=== PATIENT | male | born 1980 | race Caucasian/White ===

== ENCOUNTER 2018-01-05 19:48 | Emergency (ER) | payer MEDICARE, OTHER ==
[2018-01-05 19:55] VITALS: BP 132/91; PULSE 85; RESP 18; TEMP 98.1
--- NOTE | 2018-01-05 20:15 | ED ---
General Adult HPI - General Chief complaint: Skin/Abscess/Foreign Body Stated complaint: Tattoo is infected Time Seen by Provider: 01/05/18 19:56 Source: patient Mode of arrival: ambulatory Limitations: no limitations - History of Present Illness Initial comments: 7-year-old male presents to the ED for skin infection over a tattoo on his left forearm. He states he had a tattoo done outside of a tattoo shop at a friend's house 7 days ago. He says sterile technique was used somewhat. He first started noticing papules over the tattoo on the forearm 4 days ago. He states since then some areas of his skin under the tattoo have started to open and have become intensely pruritic. He states he has been washing it with soap and water and brought a special wash for tattoos that included sterile water this morning and has used it since that time. He states the area has been draining from time to time but he has been washing it frequently. There is currently no drainage or abscesses visible on the tattoo. He denies any fever or chills nausea vomiting shortness of breath. He states he has had tattoos done at the same place before with no problem. Also had a tattoo on his back touched up at the same time but does not notice symptoms on his back. States he has no pain with flexing and extending his hand. - Related Data Previous Rx's Medication Instructions Recorded Sulfamethox-Tmp 800-160Mg [Bactrim 1 tab PO Q12HR #14 tab 01/05/18 DS 800-160 mg] Allergies Allergy/AdvReac Type Severity Reaction Status Date / Time naproxen AdvReac Diarrhea Verified 01/05/18 19:55 Review of Systems ROS Statement: Those systems with pertinent positive or pertinent negative responses have been documented in the HPI. ROS Other: All systems not noted in ROS Statement are negative. Past Medical History Past Medical History: No Reported History History of Any Multi-Drug Resistant Organisms: None Reported Past Surgical History: Orthopedic Surgery Additional Past Surgical History / Comment(s): left wrist; left knee Past Psychological History: Depression Smoking Status: Current every day smoker Past Alcohol Use History: Occasional Past Drug Use History: Marijuana General Exam Limitations: no limitations General appearance: alert, in no apparent distress Head exam: Present: atraumatic, normocephalic, normal inspection Eye exam: Present: normal appearance, PERRL, EOMI. Absent: scleral icterus, conjunctival injection, periorbital swelling Respiratory exam: Present: normal lung sounds bilaterally. Absent: respiratory distress, wheezes, rales, rhonchi, stridor Cardiovascular Exam: Present: regular rate, normal rhythm, normal heart sounds. Absent: systolic murmur, diastolic murmur, rubs, gallop, clicks Extremities exam: Present: full ROM, normal capillary refill, other (Large tattoo covering left forearm. Erythematous papules noted along tattoo as well as open areas of skin. No drainage noted at this time. Findings are not extending beyond tattoo. No red streaking noted. Full range of motion of wrist and elbow. No pain with movement of extremity. Strong radial pulse in left wrist.). Absent: tenderness, pedal edema, joint swelling Back exam: Present: normal inspection (Tattoo noted on the mid upper back. No abnormal findings present.). Absent: tenderness, muscle spasm, paraspinal tenderness, vertebral tenderness, rash noted Course Vital Signs 01/05/18 19:49 Temperature 98.1 F Pulse Rate 85 Respiratory 18 Rate Blood Pressure 132/91 O2 Sat by Pulse 98 Oximetry Medical Decision Making - Medical Decision Making 87-year-old male presents to emergency department for infected tattoo on left forearm. States he had this tattoo done at a friend's house one week ago and noticed pruritic erythematous papules about 4 days ago. Since then he has noticed some opening of the skin and drainage. He has been washing the area with sterile water. No pain with movement of the extremities, no streaking up the arm, and papules are not extending beyond the tattoo site. Patient will be given oral antibiotics with return precautions including worsening infection an advancing redness up arm. Disposition Clinical Impression: Cellulitis of forearm, left Disposition: HOME SELF-CARE Condition: Good Instructions: Cellulitis (ED) Additional Instructions: Return to Emergency Department if symptoms worsen or do not improve. If you notice streaking redness up the arm or spreading infection, please return or contact primary care physician. Prescriptions: Sulfamethox-Tmp 800-160Mg [Bactrim DS 800-160 mg] 1 tab PO Q12HR #14 tab Referrals: None,Stated [Primary Care Provider] - 1-2 days Time of Disposition: 20:19
== END 2018-01-05 20:38 | disposition home or self-care (01) ==
LOC: EC 19:48
DX: L03.114 Cellulitis of left upper limb (principal); F17.200 Nicotine dependence, unspecified, uncomplicated; Z88.6 Allergy status to analgesic agent
CPT/HCPCS: 99282

== ENCOUNTER 2019-06-21 10:31 | Emergency (ER) | payer OTHER ==
[2019-06-21 10:35] VITALS: RESP 18
--- NOTE | 2019-06-21 10:52 | ED ---
General Adult HPI - General Chief complaint: Arrhythmia/Palpitations Stated complaint: abn EKG Time Seen by Provider: 06/21/19 10:36 Source: patient Mode of arrival: ambulatory Limitations: no limitations - History of Present Illness Initial comments: Dictation was produced using [employer] dictation software. please excuse any grammatical, word or spelling errors. Chief Complaint: 38-year-old male with strong family history of coronary artery disease presents with palpitations and abnormal EKG from urgent care. History of Present Illness: he is a 38-year-old male he has strong family history of coronary artery disease. He presents since today to us from [facility]. He was seen at the [facility] for restorative care for chief complaint of palpitations. He states he woke up from his sleep at approximately 4 AM or concerns palpitations. He called his primary care doctor whose office is rather far away. He was instructed to go to the urgent care for medical evaluation. Urgent care was concerned that his EKG was abnormal. He was sent here for concerns of acute coronary syndrome. Patient denied any chest pain to the practitioner at the urgent care. To me he said he had one episode of sharp chest pain that lasts for several seconds while he was at urgent care today. Discussed patient case with urgent care staff states that patient had abnormalities seen on his EKG. Patient is asymptomatic at this time. He reports that his father had a heart attack at around the same age as the patient is currently. The ROS documented in this emergency department record has been reviewed and confirmed by me. Those systems with pertinent positive or negative responses have been documented in the HPI. All other systems are other negative and/or noncontributory. PHYSICAL EXAM: General Impression: Alert and oriented x3, not in acute distress HEENT: Normocephalic atraumatic, extra-ocular movements intact, pupils equal and reactive to light bilaterally, mucous membranes moist. Cardiovascular: Heart regular rate and rhythm, S1&S2 audible, no murmurs, rubs or gallops Chest: Lungs clear to auscultation bilaterally, no rhonchi, no wheeze, no rales Abdomen: Bowel sounds present, abdomen soft, non-tender, non-distended, no o rganomegaly Musculoskeletal: Pulses present and equal in all extremities, no peripheral edema Motor: no focal deficits noted Neurological: CN II-XII grossly intact, no focal motor or sensory deficits noted Skin: Intact with no visualized rashes Psych: Normal affect and mood ED course: 38-year-old male with no significant past medical history presents with chief complaint of palpitations and abnormal EKG via [facility]. Vital signs upon arrival are within acceptable limits. EKG from urgent care was reviewed showing nonspecific changes. There is a T-wave inversion in lead 3. No other signs of ischemia noted. EKG shows the same.Should observe the emergency department for several hours with no changes in medical status. 2 sets troponins negative. At this point there is no clear etiology for patient's palpitations. Discussed with patient that just because his workup is negative U doesn't mean that there is any underlying disease. He is told to follow-up with cardiology. Dr. Rangel was discussed. Patient given aspirin. Be discharged. EKG interpretation: Ventricular rate 87, normal sinus rhythm, MD interval 150, QTc 2, QTc 413. No MD prolongation, no QTC prolongation. No old EKG for comparison. There is nonspecific changes with T-wave inversion in lead 3. Rest appears to be some benign early repolarization. EKG today is nonspecific. - Related Data Home Medications Medication Instructions Recorded Confirmed Cholecalciferol (Vitamin D3) 2,000 unit PO DAILY 06/21/19 06/21/19 [Vitamin D3] DULoxetine HCL [Cymbalta] 60 mg PO DAILY 06/21/19 06/21/19 Gabapentin [Neurontin] 300 mg PO DAILY 06/21/19 06/21/19 Gabapentin [Neurontin] 600 mg PO HS 06/21/19 06/21/19 Omeprazole 40 mg PO BID 06/21/19 06/21/19 Allergies Allergy/AdvReac Type Severity Reaction Status Date / Time naproxen AdvReac Diarrhea Verified 06/21/19 11:00 Review of Systems ROS Statement: Those systems with pertinent positive or pertinent negative responses have been documented in the HPI. ROS Other: All systems not noted in ROS Statement are negative. Past Medical History Past Medical History: No Reported History History of Any Multi-Drug Resistant Organisms: None Reported Past Surgical History: Orthopedic Surgery Additional Past Surgical History / Comment(s): left wrist; left knee Past Psychological History: Depression Smoking Status: Current every day smoker Past Alcohol Use History: Occasional Past Drug Use History: Marijuana General Exam Limitations: no limitations Course Vital Signs 06/21/19 06/21/1919 10:33 11:00 11:31 Temperature 98.5 F Pulse Rate 96 77 73 Respiratory 18 18 18 Rate Blood Pressure 151/99 149/106 145/104 O2 Sat by Pulse 99 98 96 Oximetry 06/21/19 06/21/19 06/21/19 12:00 12:30 13:00 Temperature Pulse Rate 69 88 72 Respiratory 18 17 18 Rate Blood Pressure 140/100 133/96 134/103 O2 Sat by Pulse 99 96 97 Oximetry 06/21/19 06/21/19 13:30 14:00 Temperature Pulse Rate 73 68 Respiratory 18 18 Rate Blood Pressure 135/97 141/95 O2 Sat by Pulse 98 96 Oximetry Medical Decision Making - Lab Data Result diagrams: 06/21/19 10:55 06/21/19 10:55 Lab Results 06/21/19 06/21/19 06/21/19 Range/Units 10:55 10:55 10:55 WBC 6.7 (3.8-10.6) k/uL RBC 4.88 (4.30-5.90) m/uL Hgb 16.5 (13.0-17.5) gm/dL Hct 46.1 (39.0-53.0) % MCV 94.5 (80.0-100.0) fL MCH 33.9 (25.0-35.0) pg MCHC 35.8 (31.0-37.0) g/dL RDW 13.5 (11.5-15.5) % Plt Count 205 (150-450) k/uL Neutrophils % 58 % Lymphocytes % 29 % Monocytes % 8 % Eosinophils % 2 % Basophils % 1 % Neutrophils # 3.9 (1.3-7.7) k/uL Lymphocytes # 1.9 (1.0-4.8) k/uL Monocytes # 0.5 (0-1.0) k/uL Eosinophils # 0.1 (0-0.7) k/uL Basophils # 0.1 (0-0.2) k/uL Sodium 143 (137-145) mmol/L Potassium 4.0 (3.5-5.1) mmol/L Chloride 106 (98-107) mmol/L Carbon Dioxide 27 (22-30) mmol/L Anion Gap 10 mmol/L BUN 7 L (9-20) mg/dL Creatinine 0.86 (0.66-1.25) mg/dL Est GFR (CKD-EPI)AfAm >90 (>60 ml/min/1.73 sqM) Est GFR (CKD-EPI)NonAf >90 (>60 ml/min/1.73 sqM) Glucose 94 (74-99) mg/dL Calcium 9.6 (8.4-10.2) mg/dL Magnesium 2.1 (1.6-2.3) mg/dL Troponin I <0.012 (0.000-0.034) ng/mL 06/21/19 Range/Units 14:05 WBC (3.8-10.6) k/uL RBC (4.30-5.90) m/uL Hgb (13.0-17.5) gm/dL Hct (39.0-53.0) % MCV (80.0-100.0) fL MCH (25.0-35.0) pg MCHC (31.0-37.0) g/dL RDW (11.5-15.5) % Plt Count (150-450) k/uL Neutrophils % % Lymphocytes % % Monocytes % % Eosinophils % % Basophils % % Neutrophils # (1.3-7.7) k/uL Lymphocytes # (1.0-4.8) k/uL Monocytes # (0-1.0) k/uL Eosinophils # (0-0.7) k/uL Basophils # (0-0.2) k/uL Sodium (137-145) mmol/L Potassium (3.5-5.1) mmol/L Chloride (98-107) mmol/L Carbon Dioxide (22-30) mmol/L Anion Gap mmol/L BUN (9-20) mg/dL Creatinine (0.66-1.25) mg/dL Est GFR (CKD-EPI)AfAm (>60 ml/min/1.73 sqM) Est GFR (CKD-EPI)NonAf (>60 ml/min/1.73 sqM) Glucose (74-99) mg/dL Calcium (8.4-10.2) mg/dL Magnesium (1.6-2.3) mg/dL Troponin I <0.012 (0.000-0.034) ng/mL Disposition Clinical Impression: Palpitations Disposition: HOME SELF-CARE Condition: Good Instructions (If sedation given, give patient instructions): Heart Palpitations (ED) Is patient prescribed a controlled substance at d/c from ED?: No Referrals: Eriberto Evans MD [STAFF PHYSICIAN] - 1-2 days Time of Disposition: 14:57
[2019-06-21 11:17] LABS: Basophils # (A) 0.1 k/uL (0-0.2); Basophils % (A) 1 %; Eosinophils # (A) 0.1 k/uL (0-0.7); Eosinophils % (A) 2 %; HCT 46.1 % (39.0-53.0); HGB 16.5 gm/dL (13.0-17.5); Lymphocytes # (A) 1.9 k/uL (1.0-4.8); Lymphocytes % (A) 29 %; MCH 33.9 pg (25.0-35.0); MCHC 35.8 g/dL (31.0-37.0); MCV 94.5 fL (80.0-100.0); Mean Platelet Volume 7.4; Monocytes # (A) 0.5 k/uL (0-1.0); Monocytes % (A) 8 %; Neutrophils # (A) 3.9 k/uL (1.3-7.7); Neutrophils % (A) 58 %; Platelet Count 205 k/uL (150-450); RBC 4.88 m/uL (4.30-5.90); RDW 13.5 % (11.5-15.5); WBC 6.7 k/uL (3.8-10.6)
--- NOTE | 2019-06-21 11:26 | XR ---
EXAMINATION TYPE: XR chest 2V DATE OF EXAM: 06/21/2019 COMPARISON: NONE TECHNIQUE: PA and lateral views submitted. HISTORY: Heart palpitations, pain abnormal EKG FINDINGS: The lungs are clear and there is no pneumothorax, pleural effusion, or focal pneumonia. Biapical pl eural thickening. No overt failure. IMPRESSION: 1. No acute process.
[2019-06-21 11:28] LABS: African American GFR (CKD) >90 (>60 ml/min/1.73 sqM); Anion Gap 10 mmol/L; Blood Urea Nitrogen 7 mg/dL (9-20); Calcium 9.6 mg/dL (8.4-10.2); Carbon Dioxide 27 mmol/L (22-30); Chloride 106 mmol/L (98-107); Glucose 94 mg/dL (74-99); Magnesium 2.1 mg/dL (1.6-2.3); Sodium 143 mmol/L (137-145)
[2019-06-21 15:08] VITALS: BP 133/88; PULSE 64; TEMP 98
== END 2019-06-21 15:10 | disposition home or self-care (01) ==
LOC: EC 10:31
DX: R00.2 Palpitations (principal); F32.9 Major depressive disorder, single episode, unspecified; F17.200 Nicotine dependence, unspecified, uncomplicated; Z82.49 Family history of ischemic heart disease and other diseases of the circulatory system; Z79.899 Other long term (current) drug therapy; Z88.6 Allergy status to analgesic agent
CPT/HCPCS: 36415; 71046; 80048; 83735; 84484; 85025; 93005; 99285

== ENCOUNTER → 2019-07-18 | Outpatient (CLI) | payer OTHER ==
[2019-07-18 16:59] LABS: Chol/HDL Ratio 5.68
== END | disposition home or self-care (01) ==
LOC: LABWHC1 09:24
PROVIDERS: ATTEND Internal Medicine Clinical Cardiac Electrophysiology
DX: R00.2 Palpitations (principal); E78.5 Hyperlipidemia, unspecified
CPT/HCPCS: 36415; 80061; 84443

== ENCOUNTER 2019-09-19 23:27 | Emergency (ER) | payer OTHER ==
[2019-09-19 23:41] VITALS: RESP 18
[2019-09-20] MEDS ORDERED: SULFAMETHOX-TMP 800-160MG 1 EACH TAB PO STA (00:44)
[2019-09-20] MEDS ORDERED: SULFAMETH-TMP DS STARTER PACK 2 TAB BTL PO STA (00:44)
[2019-09-20] MEDS ORDERED: cefTRIAXone 1,000 MG VIAL (IM USE) IM STA (00:44)
--- NOTE | 2019-09-20 01:21 | ED ---
General Adult HPI - General Chief complaint: Skin/Abscess/Foreign Body Stated complaint: Abscess on rt arm, arm pain Time Seen by Provider: 09/20/19 00:31 Source: patient, RN notes reviewed, old records reviewed Mode of arrival: ambulatory Limitations: no limitations - History of Present Illness Initial comments: 38-year-old male patient past history is for hypertension hyperlipidemia presents to be chief on abscess the right forearm. Patient reports has been ongoing for approximately one week. Patient does report that he did self incision drainage 2 times mostly yesterday which did display a moderate amount of pus. Denies asplenia, HIV, IV drug use. Denies any symptoms of systemic infection. Systemic: Pt denies fatigue, fever/chills, rash. Pt denies weakness, night sweats, weight loss. Neuro: Pt denies headache, visual disturbances, syncope or pre-syncope. HEENT: Pt denies ocular discharge or irritation, otalgia, rhinorrhea, pharyngitis or notable lymphadenopathy. Cardiopulmonary: Pt denies chest pain, SOB, heart palpitations, dyspnea on exertion. Abdominal/GI: Pt denies abdominal pain, n/v/d. : Pt denies dysuria, burning w/ urination, frequency/urgency. Denies new onset urinary or bowel incontinence. MSK: Pt denies myalgia, loss of strength or function in extremities. Neuro: Pt denies new onset weakness, paresthesias. - Related Data Home Medications Medication Instructions Recorded Confirmed Cholecalciferol (Vitamin D3) 2,000 unit PO DAILY 06/21/19 06/21/19 [Vitamin D3] DULoxetine HCL [Cymbalta] 60 mg PO DAILY 06/21/19 06/21/19 Gabapentin [Neurontin] 300 mg PO DAILY 06/21/19 06/21/19 Gabapentin [Neurontin] 600 mg PO HS 06/21/19 06/21/19 Omeprazole 40 mg PO BID 06/21/19 06/21/19 Previous Rx's Medication Instructions Recorded Cephalexin [Keflex] 500 mg PO Q6HR 7 Days #28 cap 09/20/19 Sulfamethox-Tmp 800-160Mg [Bactrim 1 tab PO Q12HR 7 Days #14 tab 09/20/19 DS 800-160 mg] Allergies Allergy/AdvReac Type Severity Reaction Status Date / Time naproxen AdvReac Diarrhea Verified 09/19/19 23:41 Review of Systems ROS Statement: Those systems with pertinent positive or pertinent negative responses have been documented in the HPI. ROS Other: All systems not noted in ROS Statement are negative. Past Medical History Past Medical History: Hyperlipidemia, Hypertension History of Any Multi-Drug Resistant Organisms: None Reported Past Surgical History: Orthopedic Surgery Additional Past Surgical History / Comment(s): left wrist; left knee Past Psychological History: Anxiety, Bipolar, Depression Smoking Status: Current every day smoker Past Alcohol Use History: Occasional Past Drug Use History: Marijuana General Exam - General Exam Comments Initial Comments: Constitutional: NAD, AOX3, Pt has pleasant affect. HEENT: NC/AT, trachea midline, neck supple, no lymphadenopathy. Posterior pharynx non erythematous, without exudates. External ears appear normal, without discharge. Mucous membranes moist. Eyes PERRLA, EOM intact. There is no scleral icterus. No pallor noted. Cardiopulmonary: RRR, no murmurs, rubs or gallops, no JVD noted. Lungs CTAB in anterior and posterior stanton. No peripheral edema. Abdominal exam: Abdomen soft and non-distended. Abdomen non-tender to palpation in all 4 quadrants. Bowel sounds active in LLQ. No hepatosplenomegaly. No ecchymosis Neuro: CN II-XII grossly intact. No nuchal rigidity. No raccon eyes, no borrero sign, no hemotympanum. No cervical spinal tenderness. MSK: No posterior calf tenderness bilaterally, homans sign negative bilaterally. Posterior tibialis and radial pulse +2 bilaterally. Sensation intact in upper and lower extremities. Full active ROM in upper and lower extremities, 5/5 stregnth. Derm: approximately 2x2 cm area of erythema and mild fluctuance of right forearm region proximally. I&D performed which displayed blood. Full range of motion of hand. No streaking. Limitations: no limitations Course Vital Signs 09/19/19 23:37 Temperature 98.0 F Pulse Rate 100 Respiratory 18 Rate Blood Pressure 134/79 O2 Sat by Pulse 98 Oximetry Procedures - Incision & Drainage Indication: abscess Site: other (right forearm) Size (cm): 2 I&D Cleaning Method: Alcohol Wipe Sterile Field Used?: Yes Scalpel Used: #11 I&D Drainage Obtained: Blood Culture Obtained?: Yes Patient Tolerated Procedure: well Medical Decision Making - Medical Decision Making 38-year-old male patient presents to ED with chief complaint abscess. Patient also in stable, afebrile. Physical exam displayed 2 x 2 area of erythema, mild fluctuance. Says and drainage performed displayed blood. Patient will be discharged with Keflex and Bactrim and strict return precautions. Follow-up with primary care provider tomorrow. Case discussed with Dr. Verduzco. Disposition Clinical Impression: Abscess Disposition: HOME SELF-CARE Condition: Stable Instructions (If sedation given, give patient instructions): Abscess (ED) Additional Instructions: Follow up with primary care provider tomorrow. Take antibiotics as directed. Return immediately to ER if condition worsens in any way or does not improve. Prescriptions: Sulfamethox-Tmp 800-160Mg [Bactrim DS 800-160 mg] 1 tab PO Q12HR 7 Days #14 tab Cephalexin [Keflex] 500 mg PO Q6HR 7 Days #28 cap Is patient prescribed a controlled substance at d/c from ED?: No Referrals: [facility],Clinic [Primary Care Provider] - 1-2 days
[2019-09-20 01:41] VITALS: BP 123/81; PULSE 85; TEMP 98.5
== END 2019-09-20 02:05 | disposition home or self-care (01) ==
LOC: EC 23:27
DX: L02.413 Cutaneous abscess of right upper limb (principal); F31.9 Bipolar disorder, unspecified; F41.9 Anxiety disorder, unspecified; F17.200 Nicotine dependence, unspecified, uncomplicated; Z88.6 Allergy status to analgesic agent; Z79.899 Other long term (current) drug therapy
CPT/HCPCS: 87070; 87205; 99284; 10060; 96372; J0696

== ENCOUNTER → 2020-03-19 | Outpatient (CLI) | payer OTHER ==
--- NOTE | 2020-03-19 14:03 | US ---
EXAMINATION TYPE: US abdomen complete DATE OF EXAM: 03/19/2020 COMPARISON: NONE CLINICAL HISTORY: R10.10 Upper abdominal pain x2 weeks. EXAM MEASUREMENTS: Liver Length: 16.0 cm Gallbladder Wall: 0.2 cm CBD: 0.5 cm Spleen: 10.3 cm Right Kidney: 10.1 x 4.2 x 5.6 cm Left Kidney: 10.3 x 4.9 x 5.0 cm Pancreas: Obscured by bowel gas, visualized portions appear wnl Liver: Coarse. Heterogenous. Hypoechoic nonvascular area visualized adjacent to GB = 3.7 x 2.6 x 2 .9 cm Gallbladder: No stones seen Evidence for sonographic Muniz's sign: Yes CBD: wnl as visualized Spleen: wnl Right Kidney: No hydronephrosis or masses seen Left Kidney: No hydronephrosis or masses seen Upper IVC: wnl Abd Aorta: No AAA visualized There is no ascites. The liver is heterogeneous The intrahepatic portion of the IVC and proximal abdominal aorta are with in normal limits. There is no evidence of cholelithiasis. Common bile duct is unremarkable. The vi sualized portions of the pancreas are homogenous. The spleen is unremarkable. Kidneys are symmetric and free of hydronephrosis, cortical medullary differentiation is maintained. No renal lesions are seen. IMPRESSION: Coarse echogenicity of the liver may be due to hepatocellular disease, hepatic steatosis with some focal fatty sparing adjacent to the gallbladder, confirmation with liver MRI could be perfo rmed.
== END | disposition home or self-care (01) ==
LOC: RADUSWWP 10:13
DX: R93.2 Abnormal findings on diagnostic imaging of liver and biliary tract (principal)
CPT/HCPCS: 76700

== ENCOUNTER → 2020-04-23 | Outpatient (CLI) | payer OTHER ==
--- NOTE | 2020-04-23 13:38 | MR ---
MR liver with and without contrast HISTORY: Upper abdominal pain Multiplanar multisequence and postcontrast images obtained through the abdomen following 8.5 cc Gadav ist IV. Correlation ultrasound abdomen 03/19/2020 Liver shows signal drop on out of phase imaging consistent with hepatic steatosis, adjacent to gallbl adder there is sparing of the signal drop compatible with focal fatty sparing. There is no evident li sherri mass or dilated intrahepatic biliary ducts. Gallbladder is within normal limits. The lung bases are clear. There is no pleural pericardial effusion. The aorta shows normal caliber. T here is no retroperitoneal adenopathy. The adrenal glands, pancreas, spleen are unremarkable, there a re splenules noted at the anterior and posterior margins of the spleen. Small T2 bright foci within t he left kidney, larger T2 bright foci within the right kidney are present which likely represent oswaldo ical cysts. There is no ascites. There is no evident bowel obstruction. IMPRESSION: Hepatic steatosis.
== END | disposition home or self-care (01) ==
LOC: RADMRIMAIN 09:38
PROVIDERS: ATTEND Nurse Practitioner Acute Care
DX: K76.0 Fatty (change of) liver, not elsewhere classified (principal); Z88.8 Allergy status to other drugs, medicaments and biological substances; Z88.5 Allergy status to narcotic agent
CPT/HCPCS: 74183; A9585

== ENCOUNTER → 2020-06-12 | Outpatient (CLI) | payer OTHER ==
--- NOTE | 2020-06-13 04:53 | MR ---
EXAMINATION TYPE: MR foot LT wo/w con DATE OF EXAM: 06/12/2020 COMPARISON: None HISTORY: Left foot soft tissue mass, pain CONTRAST: Standard multiplanar, multisequence MRI departmental protocol utilizing 8.5 mL intravenous Gadavist g adolinium contrast. The metatarsals have fairly normal signal pattern. There is no bone edema. The toes appear intact. I see no significant joint space narrowing. The tarsal bones have fairly normal signal pattern. There i s no edema. Hindfoot is not included entirely on this exam. Intertarsal joint spaces are fairly zelalem l. I see no bony destructive process. There is subcutaneous edema of the forefoot at the level of the MP joints. There is a marker in the a sherwin of concern at the plantar aspect of the proximal phalanx of the big toe. I see no evidence of a d iscrete soft tissue mass in this area. The plantar fascia appears normal. The contrast images show no pathologic enhancement. There is metal artifact in the hindfoot at the medial aspect of the distal t ibia. IMPRESSION: There is soft tissue increased signal on the STIR images in the forefoot at the plantar aspect of the proximal phalanges of multiple toes consistent with edema. No discrete mass seen. No fracture. No ev idence of osteomyelitis.
== END | disposition home or self-care (01) ==
LOC: RADMRIMAIN 08:31
PROVIDERS: ATTEND Podiatrist Foot & Ankle Surgery
DX: M79.9 Soft tissue disorder, unspecified (principal)
CPT/HCPCS: 73720; A9585

== ENCOUNTER 2020-10-29 08:33 | Day surgery (SDC) | payer OTHER ==
[2020-10-24 15:26] VITALS: BMI 31.4
[~2020-10-29 08:33] MED LIST: LACTATED RINGERS 1,000 ML IV SCH; LIDOCAINE 1% (10MG/ML) FOR IV START INTRADERMA PRN
[2020-10-29 08:58] VITALS: TEMP 97.4
--- NOTE | 2020-10-29 09:12 | P.GSHP ---
History of Present Illness H&P Date: 10/29/20 CHIEF COMPLAINT: Rectal bleeding HISTORY OF PRESENT ILLNESS: The patient is a 39-year-old male who presents for rectal bleeding. Lower endoscopy was offered for further evaluation and management. PAST MEDICAL HISTORY: Please see list. PAST SURGICAL HISTORY: Please see list. MEDICATIONS: Please see list. ALLERGIES: Please see list. SOCIAL HISTORY: No illicit drug use FAMILY HISTORY: Colon cancer REVIEW OF ORGAN SYSTEMS: CONSTITUTIONAL: No reports of fevers or chills. PHYSICAL EXAM: VITAL SIGNS: Stable GENERAL: Well-developed pleasant in no acute distress. HEENT: No scleral icterus. Extraocular movements grossly intact. Moist buccal mucosa. NECK: Supple without lymphadenopathy. CHEST: Unlabored respirations. Equal bilateral excursions. CARDIOVASCULAR: Regular rate and rhythm. Distal 2+ pulses. ABDOMEN: Soft, nontender, nondistended. MUSCULOSKELETAL: No clubbing, cyanosis, or edema. ASSESSMENT: 1. Rectal bleeding PLAN: 1. Recommend proceeding with a lower endoscopy Past Medical History Past Medical History: GERD/Reflux Additional Past Medical History / Comment(s): hemmoroids, hx of heart palpitations, prev used meds for HTN, none currently, DDD History of Any Multi-Drug Resistant Organisms: None Reported Past Surgical History: Orthopedic Surgery Additional Past Surgical History / Comment(s): left wrist, ganglion cyst removed; left knee, left ankle x3, left foot sx to remove mass Past Anesthesia/Blood Transfusion Reactions: No Reported Reaction Past Psychological History: Anxiety, Bipolar, Depression Smoking Status: Current every day smoker Past Alcohol Use History: Occasional Additional Past Alcohol Use History / Comment(s): quit smoking cigarettes 2018, smokes 1-3 cigars daily Past Drug Use History: Marijuana Additional Drug Use History / Comment(s): occasional use, instructed to hold 24hrs prior to procedure Medications and Allergies Home Medications Medication Instructions Recorded Confirmed Type No Known Home Medications 10/24/20 10/24/20 History Allergies Allergy/AdvReac Type Severity Reaction Status Date / Time naproxen AdvReac Diarrhea Verified 10/24/20 15:23 Surgical - Exam Vital Signs Temp Pulse Resp BP Pulse Ox 97.4 F L 84 20 126/87 98 10/29/20 08:56 10/29/20 08:56 10/29/20 08:56 10/29/20 08:56 10/29/20 08:56
[2020-10-29] MEDS ORDERED: LIDOCAINE 1% INJ 10MG/ML (20 ML MDV) ONE (09:37)
[2020-10-29] MEDS ORDERED: PROPOFOL 10 MG/ML 20 ML VIAL IV ONE (09:37)
[2020-10-29 10:15] VITALS: RESP 16
--- NOTE | 2020-10-29 10:16 | P.PCN ---
Date of Procedure: 10/29/20 Description of Procedure: PREOPERATIVE DIAGNOSIS: Rectal bleeding POSTOPERATIVE DIAGNOSIS: Tubular adenoma cecum Tubular adenoma ascending colon Tubular adenoma transverse colon Tubular adenoma sigmoid colon Tubular adenoma rectum Internal hemorrhoids, grade 2 External hemorrhoids OPERATION: Colonoscopy to the ileocecal valve and appendiceal orifice, cecum Colonoscopy with multiple hot snare polypectomies SURGEON: Cassandra Arthur MD. ANESTHESIA: MAC. INDICATIONS: The patient is an 39-year-old male who presents with rectal bleeding. Benefits and risks were described and informed consent was obtained. DESCRIPTION OF PROCEDURE: The patient had undergone Suprep. He had been brought into the operating room and laid in the left lateral decubitus position. After adequate intravenous sedation, the rectum was examined with 2% lidocaine jelly. The prostate was unremarkable. External hemorrhoids were encountered. The rectal tone was within normal limits. No lesions were palpated in the rectal vault. An Olympus colonoscope was advanced until the cecum, ileocecal valve and appendiceal orifice were clearly viewed. The prep was excellent. No sigmoid diverticulosis was encountered. Multiple colonic polyps were found and snare polypectomy. No evidence of focal colitis was found. Retroflexion of the scope demonstrated grade 2 internal hemorrhoids without active bleeding or inflammation. The colon was desufflated. The patient had tolerated the procedure well. Withdrawal time was over 6 minutes. FINDINGS: Aronchick preparation quality scale 1 (1-5) Internal hemorrhoids, grade 2 External hemorrhoids, grade 2, with skin tag No arteriovenous malformations. No sigmoid diverticulosis Removal of 6 polyps: - Snare polypectomy 10 cm from the anal verge, 5 mm tubulovillous adenoma polyp. - Snare polypectomy 20 cm from the anal verge 2, 4 to 5 mm flat villous adenoma polyps - Snare polypectomy distal ascending colon, 6 mm flat villous adenoma polyp. - Snare polypectomy proximal ascending colon, 4 mm flat villous adenoma polyp. - Snare polypectomy cecum, 5 mm flat villous adenoma polyp. No focal colitis. RECOMMENDATIONS: Given severity of tubular adenomas, recommend repeat colonoscopy 2 years, 2021 Plan - Discharge Summary Discharge Rx Participant: No New Discharge Prescriptions: No Action No Known Home Medications Discharge Medication List No Known Home Medications 10/24/20 [History] Follow up Appointment(s)/Referral(s): Cassandra Arthur MD [STAFF PHYSICIAN] - 11/04/20 Patient Instructions/Handouts: Colorectal Polyps (DC), Hemorrhoids (DC) Activity/Diet/Wound Care/Special Instructions: Repeat colonoscopy 2 years, 2021 Discharge Disposition: HOME SELF-CARE
[2020-10-29 10:50] VITALS: BP 122/84; PULSE 71
== END 2020-10-29 11:02 | disposition home or self-care (01) ==
LOC: ORWHC2ENDO 08:33
PROVIDERS: ATTEND Surgery Plastic and Reconstructive Surgery
DX: D12.4 Benign neoplasm of descending colon (principal); D12.2 Benign neoplasm of ascending colon; D12.0 Benign neoplasm of cecum; D12.5 Benign neoplasm of sigmoid colon; K62.1 Rectal polyp; K63.5 Polyp of colon; K64.1 Second degree hemorrhoids; K64.4 Residual hemorrhoidal skin tags; F41.9 Anxiety disorder, unspecified; F31.9 Bipolar disorder, unspecified; F17.210 Nicotine dependence, cigarettes, uncomplicated; K21.9 Gastro-esophageal reflux disease without esophagitis; Z88.6 Allergy status to analgesic agent; Z79.899 Other long term (current) drug therapy; Z98.890 Other specified postprocedural states
CPT/HCPCS: 88305; 45385; J2001; J2704

== ENCOUNTER → 2020-12-01 | Outpatient (CLI) | payer OTHER ==
[2020-12-01 14:50] LABS: HCT 49.7 % (39.0-53.0); HGB 17.3 gm/dL (13.0-17.5); MCH 32.9 pg (25.0-35.0); MCHC 34.8 g/dL (31.0-37.0); MCV 94.6 fL (80.0-100.0); Mean Platelet Volume 7.5; Platelet Count 177 k/uL (150-450); RBC 5.25 m/uL (4.30-5.90); RDW 11.5 % (11.5-15.5); WBC 6.7 k/uL (3.8-10.6)
[2020-12-02 02:08] LABS: T4, Free (Free Thyroxine) 1.1 ng/dL (0.80-1.80)
[2020-12-02 03:56] LABS: African American GFR (CKD) 97.5 (60.0-200.0); Albumin/Globulin Ratio 2.17 (1.60-3.17); Anion Gap 7.4 mmol/L (4.00-12.00); BUN/Creat Ratio 9.09 Ratio (12.00-20.00); Carbon Dioxide 26.6 mmol/L (21.6-31.8); Folate, Serum 9.9 ng/mL; Globulin 2.3 g/dL (1.6-3.3); Non-African American GFR(CKD) 84.1 (60.0-200.0); Potassium 4.6 mmol/L (3.5-5.5); Total Bilirubin 1.1 mg/dL (0.2-1.2); Total Protein 7.3 g/dL (6.2-8.2)
== END | disposition home or self-care (01) ==
LOC: LABWHC1 13:31
PROVIDERS: ATTEND Psychiatry & Neurology Neurology
DX: E55.9 Vitamin D deficiency, unspecified (principal); R41.3 Other amnesia
CPT/HCPCS: 36415; 80053; 82306; 82607; 82746; 83090; 84439; 84443; 84481; 85027

== ENCOUNTER → 2020-12-03 | Day surgery (SDC) | payer OTHER ==
[~2020-12-03] MED LIST changes: +LIDOCAINE 1% INJ 10MG/ML (20 ML MDV) ONE; +MIDAZOLAM 2 MG/2 ML VIAL ONE; +PROPOFOL 10 MG/ML 20 ML VIAL IV ONE; +fentaNYL (PF) 50 MCG/ML 2 ML AMP ONE
--- NOTE | 2020-12-03 08:09 | P.GSHP ---
History of Present Illness H&P Date: 12/03/20 CHIEF COMPLAINT: GERD HISTORY OF PRESENT ILLNESS: The patient is a 40-year-old male who presents reports gastroesophageal reflux disease. Upper endoscopy was offered for further evaluation and management. PAST MEDICAL HISTORY: Please see list. PAST SURGICAL HISTORY: Please see list. MEDICATIONS: Please see list. ALLERGIES: Please see list. SOCIAL HISTORY: No illicit drug use FAMILY HISTORY: No reports of Crohn disease or ulcerative colitis. REVIEW OF ORGAN SYSTEMS: CONSTITUTIONAL: No reports of fevers or chills. GI: Denies any blood in stools or constipation. PHYSICAL EXAM: VITAL SIGNS: Stable GENERAL: Well-developed and pleasant in no acute distress. HEENT: No scleral icterus. Extraocular movements grossly intact. Moist buccal mucosa. NECK: Supple without lymphadenopathy. CHEST: Unlabored respirations. Equal bilateral excursions. CARDIOVASCULAR: Regular rate and rhythm. Distal 2+ pulses. ABDOMEN: Soft, nondistended. MUSCULOSKELETAL: No clubbing, cyanosis, or edema. ASSESSMENT: 1. Gastroesophageal reflux disease PLAN: 1. Recommend proceeding with an upper endoscopy Past Medical History Past Medical History: GERD/Reflux, Hypertension, Osteoarthritis (OA), Sleep Apnea/CPAP/BIPAP Additional Past Medical History / Comment(s): Hemmoroids. Hx of heart palpitations (NO SPECIFIC DIAGNOSIS). CAN'T AFFORD MEDICATIONS. USES CPAP. History of Any Multi-Drug Resistant Organisms: None Reported Past Surgical History: Orthopedic Surgery Additional Past Surgical History / Comment(s): MASS FROM UNDER LEFT FOOT R EMOVED. Left wrist, ganglion cyst removed; left knee, left ankle x3, Past Anesthesia/Blood Transfusion Reactions: No Reported Reaction, Motion Sickness Past Psychological History: Anxiety, Bipolar, Depression Additional Psychological History / Comment(s): TAKES NO MEDS Smoking Status: Light tobacco smoker Past Alcohol Use History: None Reported Additional Past Alcohol Use History / Comment(s): quit smoking cigarettes 2018. Smokes 1-3 cigars daily. Past Drug Use History: Marijuana Additional Drug Use History / Comment(s): PRIOR USE OF MARIJUANA, HAS BAD REACTION TO IT NOW. Medications and Allergies Home Medications Medication Instructions Recorded Confirmed Type No Known Home Medications 10/24/20 11/28/20 History Allergies Allergy/AdvReac Type Severity Reaction Status Date / Time naproxen AdvReac Diarrhea Verified 10/24/20 15:23
[2020-12-03 09:45] VITALS: RESP 16; TEMP 97.5
--- NOTE | 2020-12-03 11:17 | P.PCN ---
Date of Procedure: 12/03/20 Description of Procedure: PREOPERATIVE DIAGNOSIS: Gastroesophageal reflux disease. POSTOPERATIVE DIAGNOSIS: Gastritis. Gastroesophageal reflux disease. Duodenitis OPERATION: Esophagogastroduodenoscopy with biopsies along antrum and duodenum SURGEON: Cassandra Arthur MD ANESTHESIA: MAC. INDICATIONS: The patient is a 40-year-old male who presents with a history of reflux disease. Benefits and risks of the procedure were described. Informed consent was obtained. DESCRIPTION: The patient was brought into the endoscopy suite and laid in the left lateral decubitus position. An Olympus gastroscope was passed along the posterior oropharynx down to the distal esophagus where the squamocolumnar junction was encountered at 38 cm from the incisors. The stomach was entered and no bile reflux was found. Additional findings are listed below. Biopsies with cold forceps were obtained of the antrum. The first through third portion of the duodenum was examined and was duodenitis. Retroflexion of the scope confirmed Hill grade 1 lower esophageal valve. The squamocolumnar junction demonstrated LA grade A erosive esophagitis. The stomach was desufflated. The patient tolerated the procedure well. FINDINGS: Squamocolumnar junction 38 cm from the incisors. Diaphragmatic hiatus at 38 cm. Hill grade 1 lower esophageal valve. LA grade A erosive esophagitis. Active duodenitis. Chronic gastritis RECOMMENDATIONS: Upper endoscopy as needed. Plan - Discharge Summary Discharge Rx Participant: No New Discharge Prescriptions: No Action No Known Home Medications Discharge Medication List No Known Home Medications 10/24/20 [History] Follow up Appointment(s)/Referral(s): Cassandra Arthur MD [STAFF PHYSICIAN] - 12/16/20 Patient Instructions/Handouts: Upper Endoscopy (DC), Gastritis (DC) Discharge Disposition: HOME SELF-CARE
[2020-12-03 11:32] VITALS: BP 108/66; PULSE 56
== END | disposition home or self-care (01) ==
LOC: ORWHC2ENDO 08:45
PROVIDERS: ATTEND Surgery Plastic and Reconstructive Surgery
DX: K29.80 Duodenitis without bleeding (principal); K22.10 Ulcer of esophagus without bleeding; K29.50 Unspecified chronic gastritis without bleeding; K21.9 Gastro-esophageal reflux disease without esophagitis; Z91.120 Patient's intentional underdosing of medication regimen due to financial hardship; I10 Essential (primary) hypertension; M19.90 Unspecified osteoarthritis, unspecified site; G47.30 Sleep apnea, unspecified; Z99.89 Dependence on other enabling machines and devices; Z98.890 Other specified postprocedural states; R00.2 Palpitations; Z88.6 Allergy status to analgesic agent; F41.9 Anxiety disorder, unspecified; F31.9 Bipolar disorder, unspecified
CPT/HCPCS: 88305; 43239; J2250; J2001; J3010; J2704

== ENCOUNTER → 2020-12-23 | Outpatient (CLI) | payer OTHER ==
--- NOTE | 2020-12-23 15:24 | NM ---
Nuclear medicine hepatobiliary scan. HISTORY: Pain. DOSAGE: The patient received 8 ounces and sure plus and 5.1 mCi of Technetium 99m Choletec. FINDINGS: There is normal hepatic extraction. The gallbladder is seen by 20 minutes. There is bilia ry to bowel clearance by 20 minutes. Ejection fraction is 52%. IMPRESSION: 1. Normal hepatobiliary exam
== END | disposition home or self-care (01) ==
LOC: RADNMMAIN 12:28
PROVIDERS: ATTEND Surgery Plastic and Reconstructive Surgery
DX: K21.9 Gastro-esophageal reflux disease without esophagitis (principal); K81.1 Chronic cholecystitis
CPT/HCPCS: 78226; A9537

== ENCOUNTER → 2020-12-25 | Outpatient (CLI) | payer OTHER ==
--- NOTE | 2020-12-25 12:36 | FL ---
EXAMINATION TYPE: FL barium swallow DATE OF EXAM: 12/25/2020 CLINICAL INDICATION: 40-year-old male K21.9, GERD COMPARISON: None Total Fluoroscopy Time: 1 minute 29 seconds Total images: 39 FINDINGS: The swallowing mechanism is normal and hypopharyngeal anatomy is preserved. The cervical and thoracic portions have a normal course and caliber and normal motility. The mucosa is normal and no persistent filling defect is encountered. There is a small sliding hiatal hernia. Moderate to severe gastroesophageal reflux is noted when the patient is supine with Valsalva maneuver. IMPRESSION: Small sliding hiatal hernia with moderate to severe gastroesophageal reflux elicited with Valsalva ma neuver.
== END | disposition home or self-care (01) ==
LOC: RADUSWWP 07:59
PROVIDERS: ATTEND Surgery Plastic and Reconstructive Surgery
DX: K44.9 Diaphragmatic hernia without obstruction or gangrene (principal); K21.9 Gastro-esophageal reflux disease without esophagitis; K81.1 Chronic cholecystitis
CPT/HCPCS: 74220

== ENCOUNTER → 2021-02-26 | Outpatient (CLI) | payer OTHER ==
[2021-02-27 02:42] LABS: Anti-DNA, DS unit <1.0 IU/mL; Anti-Smith Ab Interp NEGATIVE (NEGATIVE); Cyclic Citrull Pep IgG Unit <0.5 U/mL; Cyclic Citrullinated Pep IgG NEGATIVE (NEGATIVE); DNA Double-Stranded NEGATIVE (NEGATIVE); JO-1 IgG Antibody <0.2 AI; Scleroderma SC-70 Ab <0.2 AI
== END | disposition home or self-care (01) ==
LOC: LABWHC1 14:31
PROVIDERS: ATTEND Nurse Practitioner Family
DX: M25.50 Pain in unspecified joint (principal)
CPT/HCPCS: 36415; 83516; 86038; 86200; 86225; 86235

== ENCOUNTER 2022-06-07 07:26 | Day surgery (SDC) | payer OTHER ==
[~2022-06-07 07:26] MED LIST changes: -LIDOCAINE 1% INJ 10MG/ML (20 ML MDV) ONE; -MIDAZOLAM 2 MG/2 ML VIAL ONE; -PROPOFOL 10 MG/ML 20 ML VIAL IV ONE; -fentaNYL (PF) 50 MCG/ML 2 ML AMP ONE
--- NOTE | 2022-06-07 07:42 | P.GSHP ---
History of Present Illness H&P Date: 06/07/22 CHIEF COMPLAINT: GERD and colon screen HISTORY OF PRESENT ILLNESS: The patient is a 41-year-old male who presents with gastroesophageal reflux disease and need for colon screen. Upper and lower endoscopy were offered for further evaluation and management. PAST MEDICAL HISTORY: Please see list. PAST SURGICAL HISTORY: Please see list. MEDICATIONS: Please see list. ALLERGIES: Please see list. SOCIAL HISTORY: No illicit drug use FAMILY HISTORY: No reports of Crohn disease or ulcerative colitis. REVIEW OF ORGAN SYSTEMS: CONSTITUTIONAL: No reports of fevers or chills. GI: Denies any blood in stools or constipation. PHYSICAL EXAM: VITAL SIGNS: Stable GENERAL: Well-developed pleasant in no acute distress. HEENT: No scleral icterus. Extraocular movements grossly intact. Moist buccal mucosa. NECK: Supple without lymphadenopathy. CHEST: Unlabored respirations. Equal bilateral excursions. CARDIOVASCULAR: Regular rate and rhythm. Distal 2+ pulses. ABDOMEN: Soft, nondistended. MUSCULOSKELETAL: No clubbing, cyanosis, or edema. ASSESSMENT: 1. Gastroesophageal reflux disease 2. Colon screen. PLAN: 1. Recommend proceeding with an upper and lower endoscopy Past Medical History Past Medical History: Cancer, GERD/Reflux, Hyperlipidemia, Hypertension, Osteoarthritis (OA), Sleep Apnea/CPAP/BIPAP Additional Past Medical History / Comment(s): Hemorroids. hx. cancerous colon polyps, Hx of heart palpitations (NO SPECIFIC DIAGNOSIS). can't afford BP med, kidney stones, fatty liver, USES CPAP. History of Any Multi-Drug Resistant Organisms: None Reported Past Surgical History: Orthopedic Surgery Additional Past Surgical History / Comment(s): MASS FROM UNDER LEFT FOOT REMOVED. Left wrist, ganglion cyst removed; left knee, left ankle x3, colonoscopy Past Anesthesia/Blood Transfusion Reactions: No Reported Reaction, Motion Sickness Smoking Status: Former smoker Medications and Allergies Home Medications Medication Instructions Recorded Confirmed Type Melatonin 5 mg PO HS 06/04/22 06/04/22 History Rosuvastatin Calcium 10 mg PO HS 06/04/22 06/04/22 History hydrOXYzine HCL [Atarax] 25 mg PO TID PRN 06/04/22 06/04/22 History Allergies Allergy/AdvReac Type Severity Reaction Status Date / Time naproxen AdvReac Diarrhea Verified 06/07/22 07:40
[2022-06-07 07:49] VITALS: TEMP 96.2
[2022-06-07] MEDS ORDERED: PROPOFOL 10 MG/ML 20 ML VIAL IV ONE (08:30)
[2022-06-07] MEDS ORDERED: LIDOCAINE 2% INJ 20 MG/ML (2 ML VIAL) ONE (08:30)
[2022-06-07] MEDS ORDERED: SODIUM CHLORIDE 0.9% 1,000 ML IV ONE ×2 (09:07→09:24)
[2022-06-07 09:10] VITALS: RESP 16
--- NOTE | 2022-06-07 09:23 | P.PCN ---
Date of Procedure: 06/07/22 Description of Procedure: PREOPERATIVE DIAGNOSIS: Gastroesophageal reflux disease. POSTOPERATIVE DIAGNOSIS: Gastroesophageal reflux disease with erosive esophagitis Gastric ulcers, cardia Diaphragmatic hiatal hernia OPERATION: Esophagogastroduodenoscopy with biopsies along antrum, and gastric cardia SURGEON: Cassandra Arthur MD ANESTHESIA: MAC. INDICATIONS: The patient is a 41-year-old male who presents with reflux disease. Benefits and risks of the procedure were described. Informed consent was obtained. DESCRIPTION: The patient was brought into the endoscopy suite and laid in the left lateral decubitus position. An Olympus gastroscope was passed along the posterior oropharynx down to the distal esophagus where the squamocolumnar junction was encountered at 39 cm from the incisors. The stomach was entered and no bile reflux was found. Additional findings are listed below. Biopsies with cold forceps were obtained of the antrum. The first through third portion of the duodenum was examined. Retroflexion of the scope confirmed Hill grade 1 lower esophageal valve. The squamocolumnar junction demonstrated LA grade B erosive esophagitis. The stomach was desufflated. The patient tolerated the procedure well. FINDINGS: Squamocolumnar junction 39 cm from the incisors. Diaphragmatic hiatus at 40 cm. Hiatal hernia, 1 cm, sliding type Hill grade 1 lower esophageal valve. LA grade B erosive esophagitis. No active duodenitis. Chronic gastritis with gastric ulcer, chronic gastric cardia 3 mm RECOMMENDATIONS: 1. Omeprazole 40 mg daily
[2022-06-07] MEDS ORDERED: IV FLUID CONTINUATION 1,000 ML IV ONE (09:24)
--- NOTE | 2022-06-07 09:26 | P.PCN ---
Date of Procedure: 06/07/22 Description of Procedure: PREOPERATIVE DIAGNOSIS: Personal history of colon polyps POSTOPERATIVE DIAGNOSIS: Tubular adenoma transverse colon Tubular adenoma descending colon OPERATION: Colonoscopy to the ileocecal valve and appendiceal orifice, cecum Colonoscopy with hot snare polypectomy SURGEON: Cassandra Arthur MD. ANESTHESIA: MAC. INDICATIONS: The patient is an 41-year-old male who presents personal history of colon polyps. Last colonoscopy 5 years. Benefits and risks were described and inf ormed consent was obtained. DESCRIPTION OF PROCEDURE: The patient had undergone Sutab prep. The patient had been brought into the operating room and laid in the left lateral decubitus position. After adequate intravenous sedation, the rectum was examined with 2% lidocaine jelly. The prostate was unremarkable. No external hemorrhoids were encountered. The rectal tone was within normal limits. No lesions were palpated in the rectal vault. An Olympus colonoscope was advanced until the cecum, ileocecal valve and appendiceal orifice were clearly viewed. The prep was good. No sigmoid diverticulosis was encountered. Colonic polyps were found and removed. No evidence of focal colitis was found. Retroflexion of the scope demonstrated grade 1 internal hemorrhoids without active bleeding or inflammation. The colon was desufflated. The patient had tolerated the procedure well. Withdrawal time was over 6 minutes. FINDINGS: Aronchick preparation quality scale 2 (1-5) Internal hemorrhoids, grade 1 No external hemorrhoids No arteriovenous malformations. No sigmoid diverticulosis Removal of 2 polyps: - Snare polypectomy mid transverse colon, 5 mm tubulovillous adenoma polyp. - Snare polypectomy 40 cm from the anal verge, 4 mm flat villous adenoma polyp, descending colon No focal colitis. RECOMMENDATIONS: Repeat colonoscopy in 3 years, 2024 Plan - Discharge Summary Discharge Rx Participant: No New Discharge Prescriptions: New Omeprazole [PriLOSEC] 40 mg PO DAILY #14 cap Continue Rosuvastatin Calcium 10 mg PO HS hydrOXYzine HCL [Atarax] 25 mg PO TID PRN PRN Reason: Anxiety Melatonin 5 mg PO HS Discharge Medication List Melatonin 5 mg PO HS 06/04/22 [History] Rosuvastatin Calcium 10 mg PO HS 06/04/22 [History] hydrOXYzine HCL [Atarax] 25 mg PO TID PRN 06/04/22 [History] Omeprazole [PriLOSEC] 40 mg PO DAILY #14 cap 06/07/22 [Rx] Follow up Appointment(s)/Referral(s): Cassandra Arthur MD [STAFF PHYSICIAN] - 06/15/22 Patient Instructions/Handouts: Peptic Ulcer (DC), Colorectal Polyps (GEN) Activity/Diet/Wound Care/Special Instructions: Repeat colonoscopy in 3 years, 2024 Discharge Disposition: HOME SELF-CARE
[2022-06-07 09:42] LABS: Basophils # (A) 0.1 k/uL (0-0.2); Basophils % (A) 1 %; Eosinophils # (A) 0.2 k/uL (0-0.7); Eosinophils % (A) 2 %; HCT 43.2 % (39.0-53.0); HGB 14.7 gm/dL (13.0-17.5); Lymphocytes # (A) 2.2 k/uL (1.0-4.8); Lymphocytes % (A) 32 %; MCH 32.3 pg (25.0-35.0); MCHC 34.1 g/dL (31.0-37.0); MCV 94.9 fL (80.0-100.0); Mean Platelet Volume 7.7; Monocytes # (A) 0.5 k/uL (0-1.0); Monocytes % (A) 8 %; Neutrophils # (A) 3.7 k/uL (1.3-7.7); Neutrophils % (A) 55 %; Platelet Count 168 k/uL (150-450); RBC 4.55 m/uL (4.30-5.90); RDW 11.6 % (11.5-15.5); WBC 6.8 k/uL (3.8-10.6)
[2022-06-07 09:52] LABS: ALT 66 U/L (4-49); AST 42 U/L (17-59); African American GFR (CKD) >90 (>60 ml/min/1.73 sqM); Albumin 4.3 g/dL (3.5-5.0); Alkaline Phosphatase 67 U/L (38-126); Anion Gap 5 mmol/L; Blood Urea Nitrogen 9 mg/dL (9-20); Calcium 8.5 mg/dL (8.4-10.2); Carbon Dioxide 28 mmol/L (22-30); Chloride 107 mmol/L (98-107); Glucose 91 mg/dL (74-99); Non-African American GFR(CKD) >90 (>60 ml/min/1.73 sqM); Potassium 4.1 mmol/L (3.5-5.1); Sodium 140 mmol/L (137-145); Total Bilirubin 1.8 mg/dL (0.2-1.3); Total Protein 7.1 g/dL (6.3-8.2)
[2022-06-07 10:23] VITALS: BP 121/79; PULSE 75
[2022-06-10 07:21] LABS: Anabasine Urine <2.0 ng/mL (<2.0)
== END 2022-06-07 10:13 | disposition home or self-care (01) ==
LOC: ORWHC2ENDO 07:26
PROVIDERS: ATTEND Surgery Plastic and Reconstructive Surgery
DX: Z12.11 Encounter for screening for malignant neoplasm of colon (principal); D12.4 Benign neoplasm of descending colon; D12.3 Benign neoplasm of transverse colon; K29.50 Unspecified chronic gastritis without bleeding; K21.00 Gastro-esophageal reflux disease with esophagitis, without bleeding; K44.9 Diaphragmatic hernia without obstruction or gangrene; K25.9 Gastric ulcer, unspecified as acute or chronic, without hemorrhage or perforation; K64.0 First degree hemorrhoids; Z86.010 Personal history of colon polyps; I10 Essential (primary) hypertension; E78.5 Hyperlipidemia, unspecified; K76.0 Fatty (change of) liver, not elsewhere classified; Z87.891 Personal history of nicotine dependence; Z88.6 Allergy status to analgesic agent; Z79.899 Other long term (current) drug therapy; M19.90 Unspecified osteoarthritis, unspecified site; G47.30 Sleep apnea, unspecified; Z85.038 Personal history of other malignant neoplasm of large intestine
CPT/HCPCS: 88305; 80053; 85025; 80323; 45385; 43239; J2704; J2001

== ENCOUNTER → 2022-06-22 | Outpatient (CLI) | payer OTHER ==
--- NOTE | 2022-06-22 09:07 | US ---
EXAMINATION TYPE: US gallbladder DATE OF EXAM: 06/22/2022 COMPARISON: US, NM, & MR. CLINICAL HISTORY: K80.10 CALCULUS OF GALLBLADDER W CHRONIC CHOLECYST. TECHNIQUE: Multiple sonographic images of the right upper quadrant are obtained. 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 Liver: difficult to penetrate, hypoechoic area near gallbladder is probable fatty sparing. Gallbladder: No stones seen Evidence for sonographic Muniz's sign: No CBD: wnl Right Kidney: No hydronephrosis or masses seen IMPRESSION: 1. Hepatic steatosis
== END | disposition home or self-care (01) ==
LOC: RADUSWWP 08:20
PROVIDERS: ATTEND Surgery Plastic and Reconstructive Surgery
DX: K80.10 Calculus of gallbladder with chronic cholecystitis without obstruction (principal)
CPT/HCPCS: 76705

== ENCOUNTER 2022-08-20 14:29 | Day surgery (SDC) | payer OTHER ==
--- NOTE | 2022-08-20 12:46 | P.GSHP ---
History of Present Illness H&P Date: 08/20/22 CHIEF COMPLAINT: Paraesophageal hiatal hernia with gastroesophageal reflux disease. HISTORY OF PRESENT ILLNESS: The patient is a 41-year-old female who presents with paraesophageal hiatal hernia. He completed barium swallow including upper endoscopy workup. Now he presents for surgical intervention. PAST MEDICAL HISTORY: Please see list. PAST SURGICAL HISTORY: Please see list. MEDICATIONS: Please see list. ALLERGIES: Please see list. SOCIAL HISTORY: No illicit drug use FAMILY HISTORY: No reports of Crohn disease or ulcerative colitis. REVIEW OF ORGAN SYSTEMS: CONSTITUTIONAL: No reports of fevers or chills. GI: Denies any blood in stools or constipation. PHYSICAL EXAM: VITAL SIGNS: Stable GENERAL: Well-developed pleasant and in no acute distress. HEENT: No scleral icterus. Extraocular movements grossly intact. Moist buccal mucosa. NECK: Supple without lymphadenopathy. CHEST: Unlabored respirations. Equal bilateral excursions. CARDIOVASCULAR: Regular rate and rhythm. Distal 2+ pulses. ABDOMEN: Soft, nondistended. No peritoneal signs. MUSCULOSKELETAL: No clubbing, cyanosis, or edema. SKIN: Well-perfused. Good skin turgor. STUDIES: Barium swallow study demonstrates severe gastroesophageal reflux disease with hiatal hernia ASSESSMENT: 1. Diaphragmatic paraesophageal hiatal hernia with severe gastroesophageal reflux disease. PLAN: 1. Recommend proceeding with a robotic paraesophageal hiatal hernia with possible mesh. 2. Benefits and risks of surgical intervention was discussed including possibility of open technique. 3. Inpatient hospitalization recommended of 2 nights 4. DVT prophylaxis. 5. Antibiotic prophylaxis. 6. He has also completed a very low caloric high-protein diet to address underlying hepatomegaly. 7. Non narcotic pain management including abdominal wall block described 8. Blood sugar glucose described. 9. Weight loss management described. Past Medical History Past Medical History: Cancer, GERD/Reflux, Hyperlipidemia, Hypertension, Osteoarthritis (OA), Sleep Apnea/CPAP/BIPAP Additional Past Medical History / Comment(s): Hemorroids. hx. cancerous colon polyps 2019,2021, Hx of heart palpitations (NO SPECIFIC DIAGNOSIS). can't afford BP med, hxkidney stones, fatty liver, USES CPAP. arthritis everywhere History of Any Multi-Drug Resistant Organisms: None Reported Past Surgical History: Orthopedic Surgery Additional Past Surgical History / Comment(s): MASS FROM UNDER LEFT FOOT REMOVED. Left wrist, ganglion cyst removed; left knee took cartiledge from knee to put left ankle, left ankle x3, colonoscopy x2. had all upper teeth removed 2 weeks ago Past Anesthesia/Blood Transfusion Reactions: No Reported Reaction, Motion Sickness Smoking Status: Former smoker - Past Family History Father Family Medical History: Myocardial Infarction ([place]) Mother Additional Family Medical History / Comment(s): lots of medications Medications and Allergies Home Medications Medication Instructions Recorded Confirmed Type Melatonin 5 mg PO HS 06/04/22 08/17/22 History Rosuvastatin Calcium 10 mg PO HS 06/04/22 08/17/22 History hydrOXYzine HCL [Atarax] 25 mg PO TID PRN 06/04/22 08/17/22 History Allergies Allergy/AdvReac Type Severity Reaction Status Date / Time naproxen AdvReac Diarrhea Verified 08/17/22 10:26 omeprazole AdvReac Confusion Verified 08/17/22 10:26
[~2022-08-20 14:29] MED LIST changes: +ACETAMINOPHEN TAB 500 MG TAB PO STA; +DEXAMETHASONE SOD PHOSPHATE 4 MG/ML 1 ML VIAL IV ONE; +GABAPENTIN 300 MG CAP PO STA; +HEPARIN SODIUM,PORCINE/PF 5,000 UNIT/0.5 ML SYRINGE SQ PRN; -LACTATED RINGERS 1,000 ML IV SCH; -LIDOCAINE 1% (10MG/ML) FOR IV START INTRADERMA PRN; +MIDAZOLAM 2 MG/2 ML VIAL IV PRN; +ONDANSETRON 4 MG/2 ML VIAL IVP ONE; +SCOPOLAMINE 1 MG/72 HR PATCH TRANSDERM ONE
[2022-08-20 15:35] LABS: Basophils % (A) 1 %; Eosinophils # (A) 0.1 k/uL (0-0.7); Eosinophils % (A) 1 %; HCT 44.7 % (39.0-53.0); HGB 16.6 gm/dL (13.0-17.5); Lymphocytes % (A) 38 %; MCH 33.1 pg (25.0-35.0); MCHC 37.1 g/dL (31.0-37.0); MCV 89.2 fL (80.0-100.0); Mean Platelet Volume 7.5; Monocytes # (A) 0.5 k/uL (0-1.0); Monocytes % (A) 9 %; Neutrophils # (A) 2.5 k/uL (1.3-7.7); Neutrophils % (A) 48 %; Platelet Count 190 k/uL (150-450); RDW 11.2 % (11.5-15.5); WBC 5.2 k/uL (3.8-10.6)
[2022-08-20] MEDS: LACTATED RINGERS 1,000 ML IV SCH (15:41)
[2022-08-20 15:49] LABS: ALT 71 U/L (4-49); AST 42 U/L (17-59); African American GFR (CKD) >90 (>60 ml/min/1.73 sqM); Albumin 5.1 g/dL (3.5-5.0); Alkaline Phosphatase 89 U/L (38-126); Anion Gap 14 mmol/L; Blood Urea Nitrogen 17 mg/dL (9-20); Calcium 9.6 mg/dL (8.4-10.2); Carbon Dioxide 25 mmol/L (22-30); Chloride 101 mmol/L (98-107); Glucose 91 mg/dL (74-99); Non-African American GFR(CKD) >90 (>60 ml/min/1.73 sqM); Sodium 140 mmol/L (137-145); Total Bilirubin 1.9 mg/dL (0.2-1.3); Total Protein 8.1 g/dL (6.3-8.2)
[2022-08-20] MEDS ORDERED: LIDOCAINE 2% INJ 20 MG/ML (2 ML VIAL) ONE (16:33)
[2022-08-20] MEDS ORDERED: SUCCINYLCHOLINE CHLORIDE 200 MG/10 ML VIAL IV ONE (16:33)
[2022-08-20] MEDS ORDERED: NEOSTIGMINE 1 MG/ML 10 ML VIAL ONE (16:33)
[2022-08-20] MEDS ORDERED: MIDAZOLAM 2 MG/2 ML VIAL ONE (16:33)
[2022-08-20] MEDS ORDERED: ROCURONIUM 10 MG/ML (5 ML VIAL) IV ONE (16:33)
[2022-08-20] MEDS ORDERED: GLYCOPYRROLATE 0.2 MG/ML 2 ML VIAL ONE (16:33)
[2022-08-20] MEDS ORDERED: fentaNYL (PF) 50 MCG/ML 2 ML AMP ONE (16:33)
[2022-08-20] MEDS ORDERED: PROPOFOL 10 MG/ML 20 ML VIAL IV ONE (16:33)
[2022-08-20] MEDS ORDERED: LIDOCAINE 1%-EPI 1:100,000 20 ML VIAL SQ ONE ×2 (17:05→17:06)
[2022-08-20] MEDS ORDERED: LACTATED RINGERS 1,000 ML IV ONE (17:30)
[2022-08-20] MEDS ORDERED: HYDROmorphone 1 MG/ML 1 ML SYRINGE IVP PRN (18:11)
[2022-08-20] MEDS ORDERED: NALOXONE 0.4 MG/ML 1 ML VIAL IV PRN (18:11)
--- NOTE | 2022-08-20 18:19 | P.OP ---
Date of Procedure: 08/20/22 Description of Procedure: SURGEON: CASSANDRA ARTHUR MD PREOPERATIVE DIAGNOSES: 1. Symptomatic paraesophageal diaphragmatic hiatal hernia. 2. Gastroesophageal reflux disease. 3. Hyperlipidemia 4. Elevated liver enzymes 5. Fatty liver 6. Obstructive sleep apnea 7. Gastric ulcer 8. Bipolar disorder 9. Depressive disorder 10. Generalized anxiety disorder POSTOPERATIVE DIAGNOSES: 1. Paraesophageal midline diaphragmatic hernia, 3 cm, without incarceration. 2. Gastroesophageal reflux disease. 3. Hyperlipidemia 4. Elevated liver enzymes 5. Fatty liver 6. Obstructive sleep apnea 7. Gastric ulcer 8. Bipolar disorder 9. Depressive disorder 10. Generalized anxiety disorder OPERATION: 1. Robotic-assisted da Keyona Xi laparoscopic repair of incarcerated paraesophageal hiatal hernia, 3 x 3 cm, with Armstrong Biopatch A 8 x 8 cm. 2. Intraoperative esophagogastroduodenoscopy 3. Placement of 56-Bangladeshi bougie for esophageal dysmotility ANESTHESIA: General with local anesthetic. ESTIMATED BLOOD LOSS: 5 mL SPECIMENS REMOVED: None COMPLICATIONS: None. Condition: stable Disposition: floor FINDINGS: 1. Midline incarcerated paraesophageal hiatal hernia 3 x 3 cm 2. Intraoperative upper endoscopy confirms complete closure of hiatal hernia from Hill grade 3 to Hill grade 1 3. Intraesophageal length over 2 cm INDICATIONS: The patient is a 41-year-old male who presents with gastroesophageal reflux disease poorly controlled despite medications, and a symptomatic diaphragmatic hiatal hernia. Preoperative workup including upper endoscopy demonstrated a sliding hiatal hernia. The patient completed an esophageal manometry. Given the severity of symptoms, the patient had elected for surgical intervention. Benefits and risks including bleeding, infection, recurrence, dysphagia, injury to the lung, need for further surgery was described at length. Informed consent was obtained. DESCRIPTION: The patient was brought into the operating room and placed in supine position. Preoperatively the patient had received heparin subcutaneously for DVT prophylaxis. After general induction, the abdomen was prepped and draped in standard sterile fashion. The patient had previously voided prior to coming to the operating room. Ioban draping was placed along the abdomen. A timeout protocol was confirmed with the surgical team, for which the patient's name, procedure to be performed including DVT prophylaxis with bilateral SCDs, and preoperative antibiotics were also confirmed. A robotic da Keyona Xi system was prepped and primed. At 12 cm from the xiphoid to just below the umbilicus, proposed port sites were marked with indelible marker along the left axillary line, left mid-clavicular line with each ports were marked 10 cm from each other. A 5 mm 0 degrees laparoscopic trocar entry was performed along the left upper quadrant. The abdomen was insufflated to 15 mmHg pressure was tolerated well. Diagnostic laparoscopy demonstrated no injury to bowel, viscera, or mesentery. No injury had occurred to the small bowel or viscera. The liver was smooth consistent with two-week high-protein low-carb diet. Previous trochar sites from cholecystectomy were used. Next, one 8 mm robotic port was placed along the right upper abdomen. An 8-mm port was were placed along the right lateral lateral abdominal wall. The camera 8-mm port was maintained along the epigastrium. Another 12 mm port was placed along the left upper abdominal wall after exchanging the 5 mm port. Please note that the ports were placed at least 20 cm away from the target anatomy. Care was taken to check that each robotic arm were safely away from collision with the bed or the patient. At the epigastrium, a medium sized Kvng liver retractor was placed under direct visualization with the [employer] placed under the right shoulder of the patient. All robotic arms were used. The patient was repositioned in reverse Trendelenburg position at 21-degrees after lowering the bed. The robot was docked above the right side of the patient. Using a grasper for arm 3, a grasper for arm 1, including vessel sealer for arm 2, the robotic system was docked and primed as described. Instruments were interchanged by the therapeutic assistant. I had sat at the console. The gastrohepatic ligament was cleaved using a vessel sealer. Next, the phrenoesophageal ligament was mobilized and the distal esophagus was mobilized circumferentially. The left and right crura was identified. Circumferentially, the hernia sac was excised and brought into the peritoneal cavity. Moderate dissection into the mediastinum was performed to release the esophagus into the abdominal cavity. The paraesophageal hiatal hernia sac was also incised and divided from the esophagus. Care was taken to avoid any gastrotomy. The measured defect was consistent with 3 cm axial length and 3 cm in width. After dissection, the distal esophagus of 2+ cm was brought into the abdominal cavity. Once the hiatus and crura was dissected, 2-0 VLOC nonabsorbable suture was placed to reapproximate the diaphragmatic hiatus posteriorly. To buttress the repair, a Armstrong Biopatch A was prepared along the back table and cut in half of a la-hole fashion as to reinforce the repair as an underlay. The mesh was placed along the crural repair and tagged using horizontal mattress sutures using 2-0 VLOC. I went to the head of the bed to perform intraoperative esophagogastroduodenoscopy and placement of a 56Fr bougie. The bougie was passed along the posterior oropharynx into the stomach to address pre-existing esophageal dysmotility for 2 minutes then removed. An Olympus gastroscope was passed through posterior oropharynx. Retroflexion of the scope confirmed a Hill grade 1 lower esophageal valve. 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 The stomach had been desufflated. No evidence of leaks were found of the esophagus or stomach. The GI tract with desufflated This concluded the endoscopic portion of the case. The robot was undocked from the patient. I re-scrubbed into the case. All instruments and pneumoperitoneum and specimens were evacuated from the abdominal cavity. Incisions were reapproximated using 4-0 Monocryl in an interrupted subcuticular fashion. Liquid glue was applied to the skin. Local anesthetic was infiltrated in all wounds for postop analgesia. At the end of the procedure, needle, sponge, and instrument count was verified correct by the surgical territory manager. The patient had tolerated the procedure well and was taken to the postanesthesia unit in stable condition. Plan - Discharge Summary Discharge Rx Participant: No New Discharge Prescriptions: New Simethicone 40 mg/0.6 ml Drops [Mylicon Drops] 40 mg PO PCHS PRN #30 ml PRN Reason: Gas Ondansetron Odt [Zofran Odt] 4 mg PO Q8HR PRN #9 tab PRN Reason: Nausea bisacodyL [Dulcolax] 5 mg PO DAILY PRN #10 tab PRN Reason: Constipation Acetaminophen Tab [Tylenol Tab] 1,000 mg PO Q6HR PRN #30 tablet PRN Reason: Pain Continue Rosuvastatin Calcium 10 mg PO HS hydrOXYzine HCL [Atarax] 25 mg PO TID PRN PRN Reason: Anxiety Melatonin 5 mg PO HS Discharge Medication List Melatonin 5 mg PO HS 06/04/22 [History] Rosuvastatin Calcium 10 mg PO HS 06/04/22 [History] hydrOXYzine HCL [Atarax] 25 mg PO TID PRN 06/04/22 [History] Acetaminophen Tab [Tylenol Tab] 1,000 mg PO Q6HR PRN #30 tablet 08/20/22 [Rx] Ondansetron Odt [Zofran Odt] 4 mg PO Q8HR PRN #9 tab 08/20/22 [Rx] Simethicone 40 mg/0.6 ml Drops [Mylicon Drops] 40 mg PO PCHS PRN #30 ml 08/20/22 [Rx] bisacodyL [Dulcolax] 5 mg PO DAILY PRN #10 tab 08/20/22 [Rx] Follow up Appointment(s)/Referral(s): Cassandra Arthur MD [STAFF PHYSICIAN] - 08/24/22 (TELEHEALTH) Patient Instructions/Handouts: Laparoscopic Hiatal Hernia Repair (DC), *[facility] - Managing Your Pain After Surgery Without Opioids Activity/Diet/Wound Care/Special Instructions: Liquid diet only for 2 weeks until Sep 03 No lifting over 4 pounds in 4 weeks, Sep 20 May shower No soaking in bath tubs for 2 weeks, Sep 03 Please notify your surgeon if you develop nausea and vomiting including new onset of abdominal pain. Please ambulate at all times. Use Simethicone, Gas-X, Tylenol and ibuprofen or Aleve scheduled for the next 24-48 hours for best pain relief. Use ice along incisions for the today to prevent swelling. Please open, cut, crush pills larger than the size of a tic tack No carbonated beverages. No straws. Do not remove scopolamine patch for 3 days, if present Avoiding Gas Avoid drinking through a straw. Do not chew gum or tobacco. These actions cause you to swallow air, which produces excess gas in your stomach. Chew with your mouth closed. Avoid any foods that cause stomach gas and distention. These foods include corn, dried beans, peas, lentils, onions, broccoli, cauliflower and any food from the cabbage family. Avoid carbonated drinks, alcohol, citrus and tomato products. Carbonated drinks (sodas) are not allowed for the first six to eight weeks after surgery. After this time you can try them again in small amounts Clear Liquid Diet The first diet after surgery is the clear liquid diet. It includes the following liquids: Apple juice Cranberry juice Grape juice Chicken broth Beef broth Flavored gelatin (Jell-O) Decaf tea and coffee Caffeinated beverages are permitted based on tolerance [facility] [place] ice Full Liquid Diet The full liquid diet contains anything on the clear liquid diet, plus: Milk, soy, rice and almond (no chocolate) Cream of wheat, cream of rice, grits Strained creamed soups (no tomato or broccoli) Vanilla and strawberry-flavored ice cream Sherbet Blended, custard styled or whipped yogurt (plain or vanilla only) Vanilla and butterscotch pudding (no chocolate or coconut) Nutritional drinks including Ensure, Boost, [place] Instant Breakfast (no chocolate-flavored) Note: Dairy products, such as milk, ice cream and pudding, may cause diarrhea in some people just after surgery. You may need to avoid milk products. If so, substitute them with lactose-free beverages, such as soy, rice, Lactaid or almond milks. Discharge Disposition: HOME SELF-CARE
[2022-08-20] MEDS: HYDROmorphone 0.5 MG/0.5 ML SYRINGE IVP PRN ×2 (18:56→19:05)
[2022-08-20] MEDS: METOCLOPRAMIDE 5 MG/ML 2 ML VIAL IVP SCH (19:57)
[2022-08-20] MEDS: D5-0.45% NACL WITH KCL 20MEQ/L 1,000 ML IV SCH (19:57)
[2022-08-20] MEDS: ACETAMINOPHEN IV (For NPO) 1,000 MG in EMPTY BAG 1 BAG IVPB SCH (19:57)
[2022-08-20 22:07] LABS: Magnesium 1.9 mg/dL (1.6-2.3); Phosphorus 3.3 mg/dL (2.5-4.5)
[2022-08-20] MEDS: ONDANSETRON 4 MG/2 ML VIAL IVP SCH (23:39)
[2022-08-21] MEDS: METOCLOPRAMIDE 5 MG/ML 2 ML VIAL IVP SCH ×3 (01:17→11:20)
[2022-08-21] MEDS: ACETAMINOPHEN IV (For NPO) 1,000 MG in EMPTY BAG 1 BAG IVPB SCH ×3 (01:17→11:20)
[2022-08-21] MEDS: D5-0.45% NACL WITH KCL 20MEQ/L 1,000 ML IV SCH ×2 (04:40→11:20)
[2022-08-21] MEDS: LACTATED RINGERS 1,000 ML IV SCH (04:41)
[2022-08-21] MEDS: ONDANSETRON 4 MG/2 ML VIAL IVP SCH ×2 (08:14→11:20)
[2022-08-21 08:16] VITALS: BP 114/69; PULSE 64; RESP 15; TEMP 97.4
[2022-08-21] MEDS ORDERED: ENOXAPARIN 30 MG/0.3 ML SYRINGE SQ SCH (09:00)
--- NOTE | 2022-08-21 09:28 | P.DS ---
Providers Expected date of discharge: 08/21/22 Attending physician: Cassandra Arthur Consults: 08/20/22 12:46 Consult Physician Routine Consulting Provider: [facility] Consult Reason/Comments: [facility] Do you want consulting provider notified?: Yes Primary care physician: [facility] Course: 41-year-old male underwent laparoscopic repair hiatal hernia yesterday. Today he is doing quite well. He is currently waiting for his esophagram study. No significant pain. He would like to go home today if that study is normal. Abdomen is soft with minimal tenderness, incisions are clean and dry. He is tolerating clears. Anticipate discharge once upper GI performed. Follow-up with Dr. Farmer as outpatient. Plan - Discharge Summary Discharge Rx Participant: No New Discharge Prescriptions: New Simethicone 40 mg/0.6 ml Drops [Mylicon Drops] 40 mg PO PCHS PRN #30 ml PRN Reason: Gas Ondansetron Odt [Zofran Odt] 4 mg PO Q8HR PRN #9 tab PRN Reason: Nausea bisacodyL [Dulcolax] 5 mg PO DAILY PRN #10 tab PRN Reason: Constipation Acetaminophen Tab [Tylenol Tab] 1,000 mg PO Q6HR PRN #30 tablet PRN Reason: Pain Continue Rosuvastatin Calcium 10 mg PO HS hydrOXYzine HCL [Atarax] 25 mg PO TID PRN PRN Reason: Anxiety Melatonin 5 mg PO HS Discharge Medication List Melatonin 5 mg PO HS 06/04/22 [History] Rosuvastatin Calcium 10 mg PO HS 06/04/22 [History] hydrOXYzine HCL [Atarax] 25 mg PO TID PRN 06/04/22 [History] Acetaminophen Tab [Tylenol Tab] 1,000 mg PO Q6HR PRN #30 tablet 08/20/22 [Rx] Ondansetron Odt [Zofran Odt] 4 mg PO Q8HR PRN #9 tab 08/20/22 [Rx] Simethicone 40 mg/0.6 ml Drops [Mylicon Drops] 40 mg PO PCHS PRN #30 ml 08/20/22 [Rx] bisacodyL [Dulcolax] 5 mg PO DAILY PRN #10 tab 08/20/22 [Rx] Follow up Appointment(s)/Referral(s): Cassandra Arthur MD [STAFF PHYSICIAN] - 08/24/22 (TELEHEALTH) Patient Instructions/Handouts: *[facility] - Managing Your Pain After Surgery Without Opioids, Full Liquid Diet (DC), Laparoscopic Hiatal Hernia Repair (DC) Activity/Diet/Wound Care/Special Instructions: Liquid diet only for 2 weeks until Sep 03 No lifting over 4 pounds in 4 weeks, Sep 20March shower No soaking in bath tubs for 2 weeks, Sep 03 Please notify your surgeon if you develop nausea and vomiting including new onset of abdominal pain. Please ambulate at all times. Use Simethicone, Gas-X, Tylenol and ibuprofen or Aleve scheduled for the next 24-48 hours for best pain relief. Use ice along incisions for the today to prevent swelling. Please open, cut, crush pills larger than the size of a tic tack No carbonated beverages. No straws. Do not remove scopolamine patch for 3 days, if present Avoiding Gas Avoid drinking through a straw. Do not chew gum or tobacco. These actions cause you to swallow air, which produces excess gas in your stomach. Chew with your mouth closed. Avoid any foods that cause stomach gas and distention. These foods include corn, dried beans, peas, lentils, onions, broccoli, cauliflower and any food from the cabbage family. Avoid carbonated drinks, alcohol, citrus and tomato products. Carbonated drinks (sodas) are not allowed for the first six to eight weeks after surgery. After this time you can try them again in small amounts Clear Liquid Diet The first diet after surgery is the clear liquid diet. It includes the following liquids: Apple juice Cranberry juice Grape juice Chicken broth Beef broth Flavored gelatin (Jell-O) Decaf tea and coffee Caffeinated beverages are permitted based on tolerance [employer] Island[place] ice Full Liquid Diet The full liquid diet contains anything on the clear liquid diet, plus: Milk, soy, rice and almond (no chocolate) Cream of wheat, cream of rice, grits Strained creamed soups (no tomato or broccoli) Vanilla and strawberry-flavored ice cream Sherbet Blended, custard styled or whipped yogurt (plain or vanilla only) Vanilla and butterscotch pudding (no chocolate or coconut) Nutritional drinks including Ensure, Boost, [place] Instant Breakfast (no chocolate-flavored) Note: Dairy products, such as milk, ice cream and pudding, may cause diarrhea in some people just after surgery. You may need to avoid milk products. If so, substitute them with lactose-free beverages, such as soy, rice, Lactaid or almond milks. Discharge Disposition: HOME SELF-CARE
--- NOTE | 2022-08-21 10:03 | FL ---
EXAMINATION TYPE: FL esophagus cervic/pharynx DATE OF EXAM: 08/21/2022 HISTORY: Status post hiatal hernia repair COMPARISON: 12/25/2020 TECHNIQUE: A single contrast esophagram is performed utilizing 25 cc Isovue orally. A total of 30 s econds of fluoroscopic time was utilized during procedure and tree images obtained. FINDINGS: The esophagus shows normal motility and emptying into the stomach. Postop changes are noted at the ga stroesophageal junction. There is no extravasation or obstruction to flow. Minimal pneumoperitoneum i s likely postoperative. There is some basilar atelectasis. IMPRESSION: No evident complication status post hiatal hernia repair.
[2022-08-21 11:43] LABS: Magnesium 2.1 mg/dL (1.5-2.4); Phosphorus 3.8 mg/dL (2.4-5.1)
== END 2022-08-21 13:33 | disposition home or self-care (01) ==
LOC: OR 14:29 → 6NMEDSUR 18:22 → OR 08-21 13:33
PROVIDERS: ATTEND Surgery Plastic and Reconstructive Surgery
DX: K44.9 Diaphragmatic hernia without obstruction or gangrene (principal); K21.9 Gastro-esophageal reflux disease without esophagitis; E78.5 Hyperlipidemia, unspecified; I10 Essential (primary) hypertension; K76.0 Fatty (change of) liver, not elsewhere classified; G47.33 Obstructive sleep apnea (adult) (pediatric); K25.9 Gastric ulcer, unspecified as acute or chronic, without hemorrhage or perforation; F31.9 Bipolar disorder, unspecified; F41.1 Generalized anxiety disorder; Z87.19 Personal history of other diseases of the digestive system; Z85.038 Personal history of other malignant neoplasm of large intestine; Z87.442 Personal history of urinary calculi; Z98.890 Other specified postprocedural states; Z87.891 Personal history of nicotine dependence; Z82.49 Family history of ischemic heart disease and other diseases of the circulatory system; Z79.02 Long term (current) use of antithrombotics/antiplatelets; Z79.811 Long term (current) use of aromatase inhibitors; Z88.6 Allergy status to analgesic agent
CPT/HCPCS: 80053; 83735 ×2; 84100 ×2; 85025; 74210; 43282; C1781; J2250; J0330; J1100; J2710; J2765 ×2; J0690 ×2; J2405; J3010; J1170 ×2; J0131 ×2; J2704; Q9967; J1644; J2001

== ENCOUNTER → 2025-01-07 | Outpatient (CLI) | payer OTHER ==
--- NOTE | 2025-01-07 20:44 | MR ---
EXAMINATION TYPE: MR ankle LT wo con DATE OF EXAM: 01/07/2025 8:00 PM COMPARISON: 12/13/2024. CLINICAL INDICATION: Male, 44 years old with history of M19.072; PHH, Left ankle pain, osteoarthritis , history of surgery. TECHNIQUE: Multi planar, multi sequence imaging was performed. No Gadolinium given. IV Contrast: mL (None.) FINDINGS: LIGAMENTS AND TENDONS: The anterior talofibular ligament, calcaneofibular ligament, posterior talofi bular ligament, tibiofibular ligaments, and deltoid ligament are intact. The anterior compartment, p osterior compartment, lateral compartment, and medial compartment tendons have a normal appearance. The portion of the plantar fascia seen is unremarkable. OSSEOUS STRUCTURES AND CARTILAGE: Postsurgical changes to the ankle with fixation screw in the medial malleolus which represent demonstrates susceptibility artifact.e degeneration changes of the ankle m ortise with only 2 No evidence of the talar dome series 701 image 26. There is some subchondral bony edema within this series 401 image 17. The sinus tarsus has a normal signal intensity. The bone marro w signal intensity is within normal limits. IMPRESSION: 1. Talar dome bony protuberance likely related to prior injury. Evaluation limited due to medial mal leolus fixation screw. There is associated bony edema in the talus. 2. No definitive evidence to suggest tendon or ligament injury. [facility], , 01/07/2025 8:42 PM
== END | disposition home or self-care (01) ==
LOC: RADMRIMAIN 19:45
PROVIDERS: ATTEND Podiatrist
DX: M19.072 Primary osteoarthritis, left ankle and foot (principal)

== ENCOUNTER → 2025-01-08 | Outpatient (CLI) | payer OTHER | END | disposition home or self-care (01) | LOC: LABWHC1 08:28 | PROVIDERS: ATTEND Urology | DX: R68.82 Decreased libido (principal) | CPT/HCPCS: 36415; 84403 ==

== ENCOUNTER → 2025-05-16 | Day surgery (SDC) | payer MEDICARE, OTHER ==
[2025-05-14 14:21] VITALS: BMI 30.7
[~2025-05-16] MED LIST changes: -ACETAMINOPHEN TAB 500 MG TAB PO STA; -DEXAMETHASONE SOD PHOSPHATE 4 MG/ML 1 ML VIAL IV ONE; -GABAPENTIN 300 MG CAP PO STA; -HEPARIN SODIUM,PORCINE/PF 5,000 UNIT/0.5 ML SYRINGE SQ PRN; +LIDOCAINE 1% (10MG/ML) FOR IV START INTRADERMA PRN; +LIDOCAINE 1% INJ 10MG/ML (20 ML MDV) ONE; -MIDAZOLAM 2 MG/2 ML VIAL IV PRN; -ONDANSETRON 4 MG/2 ML VIAL IVP ONE; +PROPOFOL 10 MG/ML 20 ML VIAL IV ONE; -SCOPOLAMINE 1 MG/72 HR PATCH TRANSDERM ONE
--- NOTE | 2025-05-16 07:44 | P.GSHP ---
History of Present Illness H&P Date: 05/16/25 CHIEF COMPLAINT: Dysphagia and colon screen HISTORY OF PRESENT ILLNESS: The patient is a 44-year-old male who presents with dysphagia, gastroesophageal reflux disease and need for colon screen. Upper and lower endoscopy were offered for further evaluation and management. PAST MEDICAL HISTORY: Please see list. PAST SURGICAL HISTORY: Please see list. MEDICATIONS: Please see list. ALLERGIES: Please see list. SOCIAL HISTORY: No illicit drug use FAMILY HISTORY: No reports of Crohn disease or ulcerative colitis. REVIEW OF ORGAN SYSTEMS: CONSTITUTIONAL: No reports of fevers or chills. GI: Denies any blood in stools or constipation. PHYSICAL EXAM: VITAL SIGNS: Stable GENERAL: Well-developed pleasant in no acute distress. HEENT: No scleral icterus. Extraocular movements grossly intact. Moist buccal mucosa. NECK: Supple without lymphadenopathy. CHEST: Unlabored respirations. Equal bilateral excursions. CARDIOVASCULAR: Regular rate and rhythm. Distal 2+ pulses. ABDOMEN: Soft, nondistended. MUSCULOSKELETAL: No clubbing, cyanosis, or edema. ASSESSMENT: 1. Dysphagia and gastroesophageal reflux disease 2. Colon screen. PLAN: 1. Recommend proceeding with an upper and lower endoscopy Past Medical History Past Medical History: Cancer, GERD/Reflux, Hyperlipidemia, Hypertension, Osteoarthritis (OA), Sleep Apnea/CPAP/BIPAP Additional Past Medical History / Comment(s): Hemorroids. hx. cancerous colon polyps 2019,2021, Hx of heart palpitations (NO SPECIFIC DIAGNOSIS). can't afford BP med, hxkidney stones, fatty liver, USES CPAP, arthritis everywhere, hx of hiatal hernia, tinnitus. History of Any Multi-Drug Resistant Organisms: None Reported Past Surgical History: Orthopedic Surgery Additional Past Surgical History / Comment(s): MASS FROM UNDER LEFT FOOT REMOVED. Left wrist, ganglion cyst removed; left knee took cartiledge from knee to put left ankle, left ankle x3, colonoscopy x2, had all upper teeth removed 2 weeks ago, EGD and hiatal hernia repair. Past Anesthesia/Blood Transfusion Reactions: No Reported Reaction Additional Past Anesthesia/Blood Transfusion Reaction / Comment(s): no hx of blood transfusion Smoking Status: Former smoker - Past Family History Father Family Medical History: Myocardial Infarction (MT) Additional Family Medical History / Comment(s): 5 stents Mother Additional Family Medical History / Comment(s): lots of medications- 2024; Cancer on mom's side of the family-unknown types Medications and Allergies Home Medications Medication Instructions Recorded Confirmed Type Melatonin 5 mg PO HS 06/04/22 05/14/25 History Rosuvastatin Calcium 10 mg PO HS 06/04/22 05/14/25 History Ascorbic Acid [Vitamin C] 1,000 mg PO HS 04/04/25 05/14/25 History Cholecalciferol (Vitamin D3) 50 mcg PO 04/04/25 05/14/25 History [Vitamin D3 (50 Mcg = 2000 Iu)] DULoxetine HCL [Cymbalta] 60 mg PO 04/04/25 05/14/25 History Levothyroxine Sodium [Synthroid] 50 mcg PO QA 04/04/25 05/14/25 History Tamsulosin [Flomax] 0.4 mg PO 04/04/25 05/14/25 History Vitamin E (Dl,Tocopheryl Acet) 450 mg PO 04/04/25 05/14/25 History [Vitamin E (1000 Iu = 450 MG)] Allergies Allergy/AdvReac Type Severity Reaction Status Date / Time lamotrigine [From Lamictal] Allergy Unknown Verified 05/14/25 13:50 naproxen AdvReac Diarrhea Verified 05/14/25 13:50 omeprazole AdvReac Confusion Verified 05/14/25 13:50
[2025-05-16] MEDS: IV FLUID CONTINUATION 1,000 ML IV ONE (11:18)
[2025-05-16 11:29] VITALS: TEMP 97
[2025-05-16] MEDS: LACTATED RINGERS 1,000 ML IV SCH (11:37)
--- NOTE | 2025-05-16 13:16 | P.PCN ---
Date of Procedure: 05/16/25 Description of Procedure: PREOPERATIVE DIAGNOSIS: Dysphagia POSTOPERATIVE DIAGNOSIS: Mid esophageal stenosis Gastritis OPERATION: Esophagogastroduodenoscopy with rigid dilator over the guidewire 57 Fr with dilation Esophagogastroduodenoscopy with cold forceps biopsies stomach/antrum, esophagus, duodenum SURGEON: Cassanrda Arthur MD ANESTHESIA: MAC. INDICATIONS: The patient is a 44-year-old male who presents with a history of gastroesophageal reflux disease with abdominal pain. Benefits and risks of the procedure were described. Informed consent was obtained. DESCRIPTION: The patient was brought into the endoscopy suite and laid in the left lateral decubitus position. After a timeout was confirmed, the procedure was initiated. An Olympus gastroscope was passed into the posterior oropharynx where mid esophageal stenosis was identified. The scope was passed down to the distal esophagus. To address the esophageal stenosis, rigid dilator over guidewire was selected. Next using an Icelandic rigid dilator, a guidewire was placed through the gastroscope. Next the scope was withdrawn. A 57-Yemeni rigid [place]ic dilator was passed carefully along the posterior oropharynx to40 cm and left in place for 2-3 minutes stretch. The dilator was withdrawn including the guidewire. The scope was reentered along the posterior oropharynx with no findings of full- thickness tear of the upper esophageal sphincter. Additional findings below. Within the stomach, severe acute gastritis with gastric ulcerations were identified along the body of the stomach with cold forceps biopsies obtained. The lower esophageal valve was evaluated with Hill grade 1 lower esophageal valve. LA grade A erosive esophagitis was identified. No full-thickness injury was encountered. The GI tract was desufflated. The patient tolerated the procedure well. FINDINGS: Mid esophageal stenosis dilated 57-Yemeni rigid dilator Diaphragmatic hiatus at 40 cm from the incisors Squamocolumnar junction 40 cm from the incisors. Gastritis along the gastric body and fundus cold forceps biopsies obtained Gastritis with biopsies obtained Duodenum with biopsies obtained LA grade A erosive esophagitis with biopsies obtained Hill grade 1 lower esophageal valve. No recurrent hiatal hernia RECOMMENDATIONS: Upper endoscopy as needed
[2025-05-16 13:35] VITALS: RESP 16
--- NOTE | 2025-05-16 13:36 | P.PCN ---
Date of Procedure: 05/16/25 Description of Procedure: PREOPERATIVE DIAGNOSIS: Personal history colon polyps High risk colon adenomas POSTOPERATIVE DIAGNOSIS: Constipation OPERATION: Colonoscopy to the cecum, ileocecal valve and appendiceal orifice. SURGEON: Cassandra Arthur MD. ANESTHESIA: MAC. INDICATIONS: The patient is a 50-year-old male who presents for colonoscopy screening. Last colonoscopy 3 years ago with high risk colon adenoma resected. Benefits and risks were described and informed consent was obtained. DESCRIPTION OF PROCEDURE: The patient had undergone Suprep. The patient had been brought into the operating room and laid in the left lateral decubitus position. After adequate intravenous sedation, the rectum was examined with 2% lidocaine jelly. No external hemorrhoids were encountered. The rectal tone was within normal limits. No lesions were palpated in the rectal vault. An Olympus colonoscope was advanced until the cecum, ileocecal valve and appendiceal orifice were clearly viewed. The prep was poor to fair. Scattered diverticulosis was encountered. No colonic polyps were found over 2 cm. No evidence of focal colitis was found. Retroflexion of the scope demonstrated grade 1 internal hemorrhoids without active bleeding or inflammation. The colon was desufflated. The patient had tolerated the procedure well. Withdrawal time was over 6 minutes. FINDINGS: Aronchick preparation quality scale 3+ (1-5) Internal hemorrhoids, grade 1 No external prolapsed hemorrhoids. No arteriovenous malformations, limited due to poor prep. No large adenomatous polyps over 2 cm. No focal colitis, limited due to poor prep Moderate semisolid stool obstructing full view of mucosa. RECOMMENDATIONS: Recommend repeat colonoscopy in 3 years, 2027 with 2-day prep Plan - Discharge Summary Discharge Rx Participant: No New Discharge Prescriptions: Continue Rosuvastatin Calcium 10 mg PO HS DULoxetine HCL [Cymbalta] 60 mg PO HS Melatonin 5 mg PO HS Vitamin E (Dl,Tocopheryl Acet) [Vitamin E (1000 Iu = 450 MG)] 450 mg PO HS Ascorbic Acid [Vitamin C] 1,000 mg PO HS Tamsulosin [Flomax] 0.4 mg PO HS Levothyroxine Sodium [Synthroid] 50 mcg PO QAM Cholecalciferol (Vitamin D3) [Vitamin D3 (50 Mcg = 2000 Iu)] 50 mcg PO HS Discharge Medication List Melatonin 5 mg PO HS 06/04/22 [History] Rosuvastatin Calcium 10 mg PO HS 06/04/22 [History] Ascorbic Acid [Vitamin C] 1,000 mg PO HS 04/04/25 [History] Cholecalciferol (Vitamin D3) [Vitamin D3 (50 Mcg = 2000 Iu)] 50 mcg PO HS 04/04/25 [History] DULoxetine HCL [Cymbalta] 60 mg PO HS 04/04/25 [History] Levothyroxine Sodium [Synthroid] 50 mcg PO QAM 04/04/25 [History] Tamsulosin [Flomax] 0.4 mg PO HS 04/04/25 [History] Vitamin E (Dl,Tocopheryl Acet) [Vitamin E (1000 Iu = 450 MG)] 450 mg PO HS 04/04/25 [History] Follow up Appointment(s)/Referral(s): Cassandra Arthur MD [STAFF PHYSICIAN] - 06/18/25 3:30 pm Patient Instructions/Handouts: Esophageal Dilation (DC) Activity/Diet/Wound Care/Special Instructions: Salt water gargle twice daily for 3 days. Repeat colonoscopy 5 years, 2029. Recommend 2-day prep Discharge Disposition: HOME SELF-CARE
[2025-05-16 13:52] VITALS: BP 105/79; PULSE 73
== END | disposition home or self-care (01) ==
LOC: ORWHC2ENDO 11:02
PROVIDERS: ATTEND Surgery Plastic and Reconstructive Surgery
DX: Z12.11 Encounter for screening for malignant neoplasm of colon (principal); K57.30 Diverticulosis of large intestine without perforation or abscess without bleeding; K64.0 First degree hemorrhoids; K22.2 Esophageal obstruction; K21.00 Gastro-esophageal reflux disease with esophagitis, without bleeding; K29.50 Unspecified chronic gastritis without bleeding; I10 Essential (primary) hypertension; E78.5 Hyperlipidemia, unspecified; G47.33 Obstructive sleep apnea (adult) (pediatric); F31.9 Bipolar disorder, unspecified; F41.9 Anxiety disorder, unspecified; K76.0 Fatty (change of) liver, not elsewhere classified; Z79.890 Hormone replacement therapy; Z79.899 Other long term (current) drug therapy; Z87.891 Personal history of nicotine dependence; Z86.0101 Personal history of adenomatous and serrated colon polyps; Z88.6 Allergy status to analgesic agent
CPT/HCPCS: 88305; 45378; 43239; 43248; J2003; J2704; 43249